=== PATIENT | female | born 1965 | race Caucasian/White ===

== ENCOUNTER 2017-07-24 19:27 | Emergency (ER) | payer OTHER ==
[2017-07-24] MEDS ORDERED: MORPHINE SULFATE 4 MG/ML SYRG IV ONE (20:12)
[2017-07-24] MEDS ORDERED: NORMAL SALINE 1,000 ML IV ONE (20:12)
[2017-07-24 20:25] LABS: Hematocrit 41.7 % (37.0-47.0); Hemoglobin 13.7 gm/dL (12.5-16.0); Mean Cell Volume 88.5 fl (78-100); Mean Corpuscular Hemoglobin 29.1 pg (27-31); Mean Corpuscular Hgb Conc 32.9 g/dl (32-36); Mean Platelet Volume 10.9 fl (6.0-9.5); Neutrophil # 5.3 K/mm3 (1.3-6.0); Neutrophil % 57.1 % (42-75.0); Platelet Count 244 K/mm3 (150-450); Red Blood Count 4.71 M/mm3 (4.2-5.4); Red Cell Distribution Width 13.8 % (11.5-14.0); White Blood Count 9.3 K/mm3 (4.0-10.5)
--- NOTE | 2017-07-24 20:25 | ERNOTE ---
Abdominal HPI - Narrative Date of Service: 07/24/17 - General Chief Complaint: Abdominal Pain Time Seen by Provider: 07/24/17 20:11 Source: patient - Immun/Allergies/Home Medications Immunizatons: IMMUNIZATION HX Immunizations Up to Date No History of Influenza Vaccine No Allergies/Adverse Reactions: Allergies penicillin G Allergy (Intermediate, Verified 07/24/17 19:35) Other ivp Allergy (Intermediate, Uncoded 07/24/17 19:35) Anaphylaxis Home Medications: HOME MEDICATIONS Multivitamin [Multi Vitamin Daily] 1 each PO DAILY 01/18/15 [Last Taken 01/18/15 ] HYDROcodone/ACETAMINOPHEN [[place] 5-325] 1 each PO Q4H PRN #12 tablet 07/24/17 [ Last Taken Unknown] Lamotrigine [Lamictal] 100 mg PO 07/24/17 [Last Taken Unknown] Omeprazole 20 mg PO 07/24/17 [Last Taken Unknown] Venlafaxine HCl 100 mg PO 07/24/17 [Last Taken Unknown] - History of Present Illness Narrative: This is a 52-year-old female who comes to the emergency department complaining of a diffuse abdominal pain which has been going on for 3 weeks. She has seen several doctors for this and has not gotten a diagnosis. It has not really changed today however around 7:00 this evening she started having right-sided chest pain. The patient says that she has no shortness of breath but does have nausea. She relates that she's had nausea with the abdominal pain all along. She denies any vomiting denies any coughing denies any fever she says the pain radiates through to her back does not radiate down her arms. The patient has no shortness of breath or sputum production. Nothing makes the pain better or worse. She is a diabetic. Review of Systems - Review of Systems Constitutional: Present: no symptoms reported EYE: Present: no symptoms reported ENT: Present: no symptoms reported Respiratory: Present: no symptoms reported Cardiology: Present: chest pain Gastrointestinal/Abdominal: Present: nausea, vomiting, abdominal pain Genitourinary: Present: no symptoms reported Musculoskeletal: Present: no symptoms reported Skin: Present: no symptoms reported Neurological: Present: no symptoms reported Endocrine: Present: no symptoms reported - Patient's Past Medical History Patient History - Medical: GERD Patient History - Surgical Procedures: Appendectomy, Cholecystectomy, T & A - Social History Living Situations: home Psych History: Hx of Depression, Hx of Bipolar Disorder Smoking Status: Never smoker - Immunizations Immunizations Up to Date: No History of Influenza Vaccine: No Physical Exam - Physical Exam General Appearance: Present: wd/wn, alert, no apparent distress Head Exam: Present: normal inspection, no evidence of injury Eye Exam: Normal inspection: bilateral, PERRL: right - bilateral pupils are 2 mm and minimally reactive, EOMI: bilateral Ears, Nose, Throat: Present: normal ENT inspection, normal pharynx Neck: Present: normal inspection, nontender Respiratory: Present: no respiratory distress, normal breath sounds, lungs clear Cardiovascular/Chest: Present: regular rate, rhythm, other - patient has a 2/6 systolic murmur best heard over the left lower sternal border Gastrointestinal/Abdominal: Present: normal bowel sounds, other - patient's abdomen is soft, extremely tender to palpation in bilateral upper quadrants. Back Exam: Present: normal inspection, normal range of motion, other - questionable CVA tenderness left greater than right Extremity Exam: Present: normal inspection, normal range of motion, no edema Neurological Exam: Present: alert, oriented, normal mood/affect, no motor/ sensory deficits Skin Exam: Present: normal color, warm/dry Lymphatic Exam: Present: no adenopathy ED Progress - Results and Orders Patient's Lab Results:: I have reviewed the patient's lab results. - Vital Signs Patient's Vital Signs:: I have reviewed the patient's vital signs. Vital Signs: Vital Signs 07/24/17 07/24/17 19:46 20:10 Temperature 37.0 C 37.0 C Pulse Rate 77 77 Respiratory 14 14 Rate Blood Pressure 133/50 133/50 O2 Sat by Pulse 98 98 Oximetry - EKG EKG: NSR EKG read: Interp. by me EKG Comments: Normal sinus rhythm normal axis normal intervals no ST segment changes no signs of acute ischemia - Progress/Reassessment Chief Complaint: Abdominal Pain Progress:: Unchanged Progress Note-Subjective: 07/24/17 22:27 Patient is still having the same pains that she came in with. The chest discomfort is not pleuritic. This has been going on Plan - Plan Plan: The patient has normal laboratories and an unremarkable EKG. Her pain has been for 3 weeks, her nephew was arrested 3 weeks ago, and she got 3 weeks ago. She is complaining primarily of epigastric discomfort as well as nausea when she drinks. She says sometimes food or water feels like it gets caught in the lower part of the chest and won't move. The patient's R he had a CT of the abdomen and pelvis. She has seen a surgeon. He is prescribed medicine for her. She says this isn't helping. She is going to call the surgeon on Wednesday. I discussed with her that without laboratory tests showing possible cause, along with an exam like she has without other specific area of tenderness, that the likelihood of me finding an answer here in the ER is virtually 0. We will control her pain. I will give her some nausea medicine. She'll need to follow-up with her surgeon The patient has an appointment or is supposed to talk with him on Wednesday. I discussed the fact that although we do not see a definite cause for her symptoms here in the ER, this does not mean that there is nothing wrong. She is aware if she develops new concerning symptoms she should return to the ER. Departure Clinical Impression: Abdominal pain, Chest pain - Departure Disposition: Home self-care Condition: Fair Instructions: Abdominal Pain, Adult, [id number], Chest Pain Observation Additional Instructions: As we discussed the tests and studies done here in the ER did not show anything specific wrong. This does not imply that you are not having symptoms, nor doesn 't mean that there is nothing wrong with you. It simply means that the emergency departments testswhich are typically for severe or life-threatening conditions do not show anything abnormal. We have already had a CAT scan with this abdominal pain. Her symptoms have a characteristic which makes me suspect they are coming from her stomach. Certainly acid reflux or irritation of your esophagus could cause some of these symptoms. I see no signs of heart damage on your tests. I want you to call your family doctor, tell them you were seen in the ER with chest pain, and follow up with them as an outpatient. He should return to the ER for new concerning symptoms X He may take the prescribed hydrocodone for severe pain. No driving or operating machinery while taking this Prescriptions: HYDROcodone/ACETAMINOPHEN [[place] 5-325] 1 each PO Q4H PRN #12 tablet PRN Reason: Pain
[2017-07-24 20:43] LABS: ALT 22 U/L (19-67); AST 11 U/L (0-48); Albumin * 3.4 gm/dl (3.4-5.0); Alkaline Phosphatase * 86 U/L (50-170); Anion Gap 13.3 mmol/L (6.8-13.8); BUN/Creatinine Ratio 33.8 (9.0-21.6); Bilirubin, Total 0.2 mg/dL (0.0-1.1); Blood Urea Nitrogen 24 mg/dL (3-23); Ca. Corrected For Albumin 9.4 mg/dL (8.4-10.2); Calcium * 9.2 mg/dL (7.9-10.9); Carbon Dioxide 27.6 mmol/L (24-32.6); Chloride 107 mmol/L (97-106); Glucose * 113 mg/dL (70-110); Lipase 68 U/L (73-393); Potassium 3.9 mmol/L (3.4-4.6); Sodium 144 mmol/L (132-142); Troponin I Less than 0.017 ng/ml (0.00-0.10)
[2017-07-24] MEDS ORDERED: MORPHINE SULFATE 4 MG/ML SYRG ONE ×2 (20:54→22:30)
[2017-07-24 22:00] LABS: Urine Bilirubin Negative (NEGATIVE); Urine Blood Negative /ul (NEGATIVE); Urine Ketone Negative (NEGATIVE); Urine Nitrite Negative (NEGATIVE); Urine Protein Negative (NEGATIVE); Urine Specific Gravity 1.025 SP.GR. (1.005-1.010); Urine Urobilinogen Normal (NORMAL)
[2017-07-24 22:14] LABS: Urine Appearance Clear; Urine Bacteria TRACE; Urine Color Yellow; Urine RBC None Seen /hpf (0-5); Urine WBC None Seen /hpf (0-5)
[2017-07-24] MEDS ORDERED: MORPHINE SULFATE 4 MG/ML SYRG IM ONE (22:27)
[2017-07-24 23:28] VITALS: BP 141/82
== END 2017-07-24 23:37 | disposition home or self-care (01) ==
LOC: ER 19:27
DX: R10.9 Unspecified abdominal pain (principal); R07.9 Chest pain, unspecified

== ENCOUNTER 2017-08-14 18:16 | Emergency (ER) | payer OTHER ==
[2017-08-14] MEDS ORDERED: DIATRIZOATE MEGLUMINE, SODIUM 30 ML BTL PO ONE (19:14)
[2017-08-14] MEDS ORDERED: DIATRIZOATE MEGLUMINE, SODIUM 30 ML BTL ONE (19:23)
[2017-08-14 19:29] LABS: Hematocrit 43.7 % (37.0-47.0); Hemoglobin 14.2 gm/dL (12.5-16.0); Mean Cell Volume 88.6 fl (78-100); Mean Corpuscular Hemoglobin 28.8 pg (27-31); Mean Corpuscular Hgb Conc 32.5 g/dl (32-36); Mean Platelet Volume 10.5 fl (6.0-9.5); Neutrophil # 4.6 K/mm3 (1.3-6.0); Platelet Count 250 K/mm3 (150-450); Red Blood Count 4.93 M/mm3 (4.2-5.4); Red Cell Distribution Width 13.7 % (11.5-14.0)
--- NOTE | 2017-08-14 19:35 | ERNOTE ---
GI Bleeding/Rectal Pain ER Date of Service: 08/14/17 Presenting Symptoms: rectal bleeding Time Seen by Provider: 08/14/17 18:59 Source: patient Exam Limitations: no limitations Immunizations: IMMUNIZATION HX Immunizations Up to Date No History of Influenza Vaccine No Allergies/Adverse Reactions: Allergies penicillin G Allergy (Intermediate, Verified 08/14/17 18:41) Other ivp Allergy (Intermediate, Uncoded 08/14/17 18:41) Anaphylaxis Home Medications: HOME MEDICATIONS Multivitamin [Multi Vitamin Daily] 1 each PO DAILY 01/18/15 [Last Taken 01/18/15 ] Lamotrigine [Lamictal] 100 mg PO 07/24/17 [Last Taken Unknown] Omeprazole 20 mg PO 07/24/17 [Last Taken Unknown] Venlafaxine HCl 100 mg PO 07/24/17 [Last Taken Unknown] Narrative: Patient presents to the ED for blood in stools. She has had two bloody bowel movements today. She states there was blood in the toilet. No vomiting of blood. Had her esophagus "stretches" two weeks ago. Shew also relates intense abdominal pain for approx two weeks. Feels feverish and achy. Loose stool but no clear bloody diarrhea. Not on ABx. No CP or SOB. Nothing really makes this better or worse. Timing: intermittent Quality/Severity: Present: moderate Nausea/Vomiting: Present: blood Abdominal Pain: Present: LUQ, LLQ, epigastric Rectal Bleeding: Present: blood mixed with stool Associated Symptoms: Denies: black stools Prior Treament: Denies: recently hospitalized Review of Systems - Review of Systems Constitutional: Present: chills ENT: Absent: sore throat Respiratory: Absent: shortness of breath Cardiology: Absent: chest pain Gastrointestinal/Abdominal: Present: abdominal pain. Absent: vomiting Genitourinary: Absent: dysuria Neurological: Absent: weakness - Patient's Past Medical History Patient History - Medical: Depression, GERD Patient History - Cardiac/Respiratory: Asthma Patient History - Cancer: No Hx of Cancer Patient History - Surgical Procedures: Appendectomy, Cataracts, Cholecystectomy , Hysterectomy, T & A - Social History Living Situations: home Psych History: Hx of Depression, Hx of Bipolar Disorder Smoking Status: Never smoker Alcohol Use: none Drug Use: none - Immunizations Immunizations Up to Date: No History of Influenza Vaccine: No Physical Exam - Physical Exam General Appearance: Present: alert, no apparent distress Head Exam: Present: normal inspection, no evidence of injury Eye Exam: Normal inspection: bilateral, PERRL: bilateral Ears, Nose, Throat: Present: normal ENT inspection Neck: Present: normal inspection Respiratory: Present: no respiratory distress, normal breath sounds, no accessory muscle use, lungs clear Cardiovascular/Chest: Present: regular rate, rhythm, normal peripheral pulses Gastrointestinal/Abdominal: Present: normal bowel sounds, soft, tenderness, other - Moderate left sided tendenress diffusely. No clear peritoneal signs. No guarding. Rectal Exam: Present: other - with female RN present. No hemorrhoids or fissure seen. No gross blood. No masses noted. Back Exam: Absent: CVA tenderness (R), CVA tenderness (L) Neurological Exam: Present: alert, normal mood/affect, no motor/sensory deficits Skin Exam: Present: normal color, warm/dry ED Progress - Vital Signs Patient's Vital Signs:: I have reviewed the patient's vital signs. Vital Signs: Vital Signs 08/14/17 18:35 Temperature 37 C Pulse Rate 72 Respiratory 20 Rate Blood Pressure 133/99 O2 Sat by Pulse 96 Oximetry - Progress/Reassessment Chief Complaint: GI Bleed - Transfer of Care Physician Sign Out: Juan Pablo Ferguson Receiving Physician: Natasha Jurado Pending Results: CT/MRI results, Labs Departure Clinical Impression: Abdominal pain, Blood in stool - Departure Disposition: Home self-care Condition: Stable Referrals: Kati Gold, DOUG [Primary Care Provider] -
[2017-08-14 19:37] LABS: Urine Appearance Clear; Urine Bilirubin Negative (NEGATIVE); Urine Color Yellow; Urine Ketone Negative (NEGATIVE); Urine Specific Gravity 1.015 SP.GR. (1.005-1.010)
[2017-08-14 19:38] LABS: Urine Nitrite Negative (NEGATIVE); Urine Protein Negative (NEGATIVE); Urine Urobilinogen Normal (NORMAL)
[2017-08-14 19:40] LABS: Prothrombin Time (Patient) 9.9 Seconds (9.0-11.0)
[2017-08-14 19:40] LABS: Urine Bacteria None Seen; Urine Blood 5 /ul (NEGATIVE); Urine RBC None Seen /hpf (0-5); Urine WBC 0-5 /hpf (0-5)
[2017-08-14 19:42] LABS: Albumin * 3.3 gm/dl (3.4-5.0); Anion Gap 10.9 mmol/L (6.8-13.8); BUN/Creatinine Ratio 18.6 (9.0-21.6); Bilirubin, Total 0.2 mg/dL (0.0-1.1); Calcium * 8.8 mg/dL (7.9-10.9); Carbon Dioxide 29.7 mmol/L (24-32.6); Potassium 3.6 mmol/L (3.4-4.6); Total Protein 6.9 gm/dL (6.2-8.2)
[2017-08-14 19:46] LABS: INR 0.99 INR (0.90-1.10)
--- NOTE | 2017-08-14 20:35 | ERNOTE ---
GI Bleeding/Rectal Pain ER Presenting Symptoms: rectal bleeding Time Seen by Provider: 08/14/17 18:59 Source: patient Immunizations: IMMUNIZATION HX Immunizations Up to Date No History of Influenza Vaccine No Allergies/Adverse Reactions: Allergies penicillin G Allergy (Intermediate, Verified 08/14/17 18:41) Other ivp Allergy (Intermediate, Uncoded 08/14/17 18:41) Anaphylaxis Home Medications: HOME MEDICATIONS Multivitamin [Multi Vitamin Daily] 1 each PO DAILY 01/18/15 [Last Taken 01/18/15 ] Lamotrigine [Lamictal] 100 mg PO 07/24/17 [Last Taken Unknown] Omeprazole 20 mg PO 07/24/17 [Last Taken Unknown] Venlafaxine HCl 100 mg PO 07/24/17 [Last Taken Unknown] Narrative: Patient has been up and down to the bathroom, walking without difficulty. She walked to her CT scan without any difficulties. I explained that the CT, while it had a few abnormalities, did not show diverticulitis, which was what we were trying to rule out. She does have questionable stranding around the pancreatic head, her Lipase is low at 72. She has multiple kidney cysts and some areas that are incompletely characterized low-density lesions. I have counseled the patient on these findings, and instructed her to follow up with her primary care provider on Wednesday. - Patient's Past Medical History Patient History - Medical: Depression, GERD Patient History - Cardiac/Respiratory: Asthma Patient History - Cancer: No Hx of Cancer Patient History - Surgical Procedures: Appendectomy, Cataracts, Cholecystectomy , Hysterectomy, T & A - Social History Living Situations: home Psych History: Hx of Depression, Hx of Bipolar Disorder Smoking Status: Never smoker Alcohol Use: none Drug Use: none - Immunizations Immunizations Up to Date: No History of Influenza Vaccine: No Physical Exam - Physical Exam General Appearance: Present: wd/wn, alert, no apparent distress Head Exam: Present: normal inspection, no evidence of injury Ears, Nose, Throat: Present: normal ENT inspection Neck: Present: normal inspection, nontender Respiratory: Present: no respiratory distress Gastrointestinal/Abdominal: Present: soft Back Exam: Present: normal inspection, normal range of motion Extremity Exam: Present: normal inspection, normal range of motion Neurological Exam: Present: alert, oriented, normal mood/affect Skin Exam: Present: normal color, warm/dry ED Progress - Date and Time Seen: Date and Time: 08/14/17 20:34 Laboratory Results - last 24 hr 08/14/17 08/14/17 08/14/17 19:10 19:14 19:20 WBC 8.0 RBC 4.93 Hgb 14.2 Hct 43.7 MCV 88.6 MCH 28.8 MCHC 32.5 RDW 13.7 Plt Count 250 MPV 10.5 H Immature Gran % (Auto) 0.40 Immature Gran # (Auto) 0.03 Neutrophils % 57.0 Lymphocytes % 32.5 Monocytes % 6.8 Eosinophils % 2.6 Basophils % 0.7 Nucleated RBC % 0.0 Neutrophils # 4.6 Lymphocytes # 2.6 Monocytes # 0.6 Eosinophils # 0.2 Absolute Basophils 0.1 PT INR (Anticoag Therapy) Sodium 143 H Plasma Sodium 143 H Potassium 3.6 Chloride 106 Carbon Dioxide 29.7 Anion Gap 10.9 BUN 13 Creatinine 0.70 Est GFR (Non-Af Amer) 93 BUN/Creatinine Ratio 18.6 Random Glucose 100 Calcium 8.8 Calcium Adj for Albumin 9.0 Total Bilirubin 0.2 AST 15 ALT 24 Alkaline Phosphatase 80 Total Protein 6.9 Albumin 3.3 L Lipase 72 L Urine Color Urine Appearance Urine pH Ur Specific [place] Urine Protein Urine Glucose (UA) Urine Ketones Urine Blood Urine Nitrate Urine Bilirubin Urine Urobilinogen Ur Leukocyte Esterase Urine RBC Urine WBC Ur Epithelial Cells Urine Bacteria Urine Culture Comments Stool Occult Blood Negative 08/14/17 08/14/17 19:20 19:21 WBC RBC Hgb Hct MCV MCH MCHC RDW Plt Count MPV Immature Gran % (Auto) Immature Gran # (Auto) Neutrophils % Lymphocytes % Monocytes % Eosinophils % Basophils % Nucleated RBC % Neutrophils # Lymphocytes # Monocytes # Eosinophils # Absolute Basophils PT 9.9 INR (Anticoag Therapy) 0.99 Sodium Plasma Sodium Potassium Chloride Carbon Dioxide Anion Gap BUN Creatinine Est GFR (Non-Af Amer) BUN/Creatinine Ratio Random Glucose Calcium Calcium Adj for Albumin Total Bilirubin AST ALT Alkaline Phosphatase Total Protein Albumin Lipase Urine Color Yellow Urine Appearance Clear Urine pH 6.0 Ur Specific [place] 1.015 Urine Protein Negative Urine Glucose (UA) Negative Urine Ketones Negative Urine Blood 5 H Urine Nitrate Negative Urine Bilirubin Negative Urine Urobilinogen Normal Ur Leukocyte Esterase Negative Urine RBC None seen Urine WBC 0-5 Ur Epithelial Cells 0-5 Urine Bacteria None seen Urine Culture Comments No culture indicated Stool Occult Blood - Results and Orders Patient's Lab Results:: I have reviewed the patient's lab results. Results and Orders: Laboratory Results - last 24 hr 08/14/17 08/14/17 08/14/17 19:10 19:14 19:20 WBC 8.0 RBC 4.93 Hgb 14.2 Hct 43.7 MCV 88.6 MCH 28.8 MCHC 32.5 RDW 13.7 Plt Count 250 MPV 10.5 H Immature Gran % (Auto) 0.40 Immature Gran # (Auto) 0.03 Neutrophils % 57.0 Lymphocytes % 32.5 Monocytes % 6.8 Eosinophils % 2.6 Basophils % 0.7 Nucleated RBC % 0.0 Neutrophils # 4.6 Lymphocytes # 2.6 Monocytes # 0.6 Eosinophils # 0.2 Absolute Basophils 0.1 PT INR (Anticoag Therapy) Sodium 143 H Plasma Sodium 143 H Potassium 3.6 Chloride 106 Carbon Dioxide 29.7 Anion Gap 10.9 BUN 13 Creatinine 0.70 Est GFR (Non-Af Amer) 93 BUN/Creatinine Ratio 18.6 Random Glucose 100 Calcium 8.8 Calcium Adj for Albumin 9.0 Total Bilirubin 0.2 AST 15 ALT 24 Alkaline Phosphatase 80 Total Protein 6.9 Albumin 3.3 L Lipase 72 L Urine Color Urine Appearance Urine pH Ur Specific [place] Urine Protein Urine Glucose (UA) Urine Ketones Urine Blood Urine Nitrate Urine Bilirubin Urine Urobilinogen Ur Leukocyte Esterase Urine RBC Urine WBC Ur Epithelial Cells Urine Bacteria Urine Culture Comments Stool Occult Blood Negative 08/14/17 08/14/17 19:20 19:21 WBC RBC Hgb Hct MCV MCH MCHC RDW Plt Count MPV Immature Gran % (Auto) Immature Gran # (Auto) Neutrophils % Lymphocytes % Monocytes % Eosinophils % Basophils % Nucleated RBC % Neutrophils # Lymphocytes # Monocytes # Eosinophils # Absolute Basophils PT 9.9 INR (Anticoag Therapy) 0.99 Sodium Plasma Sodium Potassium Chloride Carbon Dioxide Anion Gap BUN Creatinine Est GFR (Non-Af Amer) BUN/Creatinine Ratio Random Glucose Calcium Calcium Adj for Albumin Total Bilirubin AST ALT Alkaline Phosphatase Total Protein Albumin Lipase Urine Color Yellow Urine Appearance Clear Urine pH 6.0 Ur Specific [place] 1.015 Urine Protein Negative Urine Glucose (UA) Negative Urine Ketones Negative Urine Blood 5 H Urine Nitrate Negative Urine Bilirubin Negative Urine Urobilinogen Normal Ur Leukocyte Esterase Negative Urine RBC None seen Urine WBC 0-5 Ur Epithelial Cells 0-5 Urine Bacteria None seen Urine Culture Comments No culture indicated Stool Occult Blood - Vital Signs Patient's Vital Signs:: I have reviewed the patient's vital signs. Vital Signs: Vital Signs 08/14/17 08/14/17 08/14/17 18:35 19:28 19:58 Temperature 37 C 37 C Pulse Rate 72 72 68 Respiratory 20 16 Rate Blood Pressure 133/99 125/65 O2 Sat by Pulse 96 98 Oximetry - CT/Ultrasound CT/Ultrasound Narrative: CT Abdomen/Pelvis 1. Questionable fat stranding near the pancreatic head. 2. No additional acute intra-abdominal findings. 3. Incompletely characterized low-density renal lesions. Follow-up renal sonography (or renal CT versus MRI) can be considered. 4. Hepatic steatosis. - Progress/Reassessment Chief Complaint: GI Bleed Progress:: Unchanged Progress Note-Subjective: 08/14/17 21:44 Patient has been up and down to the bathroom, walked to the CT scan and back. Once in the room, she acted like she was in pain, but appeared to understand that her labs were all mostly normal, that her guiac stool was negative, that if she had red stools, they were most likely from something she ate as opposed to a GI bleed, of which we have found no evidence whatsoever. I instructed the patient to call her primary care provider in [place] Wednesday and get in there for follow up. - Transfer of Care Physician Sign Out: Juan Pablo Ferguson Brief History: Patient states that she has had 2 bloody stools today, so she came in here to be checked out. She was seen initially by Dr. Ferguson. Her labs have come back, they are normal, guiac is negative. Patient is up and walking around. She has drank the oral contrast, is not receiving the IV contrast. She is seen frequently in the ED both here and other hospitals. Receiving Physician: Natasha Jurado Pending Results: CT/MRI results, Labs Departure Clinical Impression: Renal cyst Abdominal pain Qualifiers: Abdominal location: generalized Qualified Code(s): R10.84 - Generalized abdominal pain - Departure Disposition: Home self-care Condition: Stable Instructions: Indigestion, [id number], Food Choices to Help Relieve Diarrhea , Adult Referrals: Kati Gold CNP [Primary Care Provider] - 08/16/17 8:00 am (Call to set up an appointment in the next 3-5 days)
[2017-08-14 21:53] VITALS: BP 120/75
== END 2017-08-14 22:02 | disposition home or self-care (01) ==
LOC: ER 18:16
DX: N28.1 Cyst of kidney, acquired (principal); R10.84 Generalized abdominal pain

== ENCOUNTER 2019-03-12 19:32 | Observation (INO) ==
[2019-03-12] MEDS ORDERED: ASPIRIN 81 MG TAB.CHEW PO ONE (19:49)
--- NOTE | 2019-03-12 19:51 | ERNOTE ---
Chest Pain/Cardiac HPI Date of Service: 03/12/19 Chief Complaint: Chest Pain Time Seen by Provider: 03/12/19 19:46 Source: patient, family Exam Limitations: no limitations Immunizations: IMMUNIZATION HX Immunizations Up to Date Yes History of Influenza Vaccine No Hx Pneumococcal Vaccination No Allergies/Adverse Reactions: Allergies penicillin G Allergy (Intermediate, Verified 03/12/19 19:42) Other iodine iv contrast Allergy (Uncoded 03/12/19 19:42) Anaphylaxis Home Medications: HOME MEDICATIONS Vit D3-Vit K/Berberine/Hops [Ostera Tablet] 1 tab PO DAILY 08/31/18 [Last Taken Unknown] Meclizine HCl [Antivert] 25 mg PO TID #42 tab 11/23/18 [Last Taken Unknown] Omeprazole 20 mg PO DAILY 12/01/18 [Last Taken Unknown] topiramate 25 mg tablet 25 mg PO BID 12/06/18 [Last Taken Unknown] Naproxen [Naprosyn] 375 mg PO BID #30 tab 12/23/18 [Last Taken Unknown] lorazepam 0.5 mg tablet 0.5 mg PO HS #30 tab 12/26/18 [Last Taken Unknown] lamotrigine 200 mg tablet 200 mg PO HS #30 tab 02/06/19 [Last Taken Unknown] vortioxetine 20 mg tablet 20 mg PO DAILY #30 tab 02/21/19 [Last Taken Unknown] Narrative: Patient reports sitting down and starting to eat some fish tonight when she developed chest pain. Describes as acute onset to the left of the sternum worsening with deep breathing. States she can point exactly to the spot where the pain is the worse. Describes as more of a burning pain that does not radiate into any extremities, back, or jaw. Denies any nausea. States she has had chest pain before but never an ND. Has a strong family history of CAD. Date (Duration): 03/12/19 Time (Timing): 18:00 Timing: intermittent Severity/Quality: mild, burning Location: substernal, epigastric Chest Pain Radiation: no radiation Activities at Onset: other - eating Modifying Factors - Improves: Present: nothing Modifying Factors - Worsens: Present: eating Nitro Today/Relief: no nitro taken today Aspirin Treatment Today: 325 mg x 1, provided by ED Associated Symptoms: Present: denies symptoms Prior Chest Pain/Cardiac Workup: Reports: prior chest pain Review of Systems - Review of Systems Constitutional: Present: no symptoms reported EYE: Present: no symptoms reported ENT: Present: no symptoms reported Respiratory: Present: no symptoms reported Cardiology: Present: chest pain, other - burning worse with deep breathing. Able to pinpoint where the pain is. Gastrointestinal/Abdominal: Present: no symptoms reported Genitourinary: Present: no symptoms reported Musculoskeletal: Present: no symptoms reported Skin: Present: no symptoms reported Neurological: Present: no symptoms reported Endocrine: Present: no symptoms reported Hematologic/Lymphatic: Present: no symptoms reported Medical History (Updated 03/12/19 @ 20:47 by FELICIA Razo) Mental retardation (Chronic) Major depression (Chronic) Borderline personality disorder (Chronic) Abdominal pain Anxiety Onset Date: Unknown Apnea Onset Date: Unknown Asthma Onset Date: Unknown Attempted suicide Bipolar 1 disorder, depressed Bronchitis Onset Date: Unknown Cataract Cough Onset Date: ~02/2013 Depression Onset Date: Unknown Dizziness Onset Date: Unknown Dyspareunia Onset Date: ~03/2014 Epilepsy Onset Date: Unknown Frequent infections Onset Date: Unknown Gout Onset Date: Unknown IBS (irritable bowel syndrome) Measles Onset Date: Unknown Multiple allergies Onset Date: Unknown Nervousness Onset Date: Unknown Pneumonia Onset Date: Unknown Rheumatoid arthritis Onset Date: Unknown Schizophrenia Onset Date: Unknown Seizures Onset Date: Unknown Surgical History: Surgical History (Updated 02/17/19 @ 15:18 by Otto Garcia LPN) Esophageal dilatation H/O dilation and curettage Onset Date: ~1991 H/O: hysterectomy History of appendectomy History of cataract surgery Onset Date: ~2011 History of cholecystectomy Hx of tonsillectomy [place] teeth extracted Onset Date: Unknown tumor removed left ovary Family History: Family History (Updated 02/17/19 @ 15:23 by Otto Garcia LPN) Other Anemia Arthritis Asthma CVA (cerebral vascular accident) Cancer Diabetes Glaucoma Heart disease Hypertension Kidney disease Mental illness in member of household Myocardial infarction Osteoporosis Seizures Ulcer Social History: Preferred Language Lithuanian Do you have any anabaptism or No cultural preference? Smoking Status Never smoker Psych History Hx of Depression,Hx of Bipolar Disorder Alcohol Use none Drug Use none (Last Updated 02/17/19 @ 15:29 by Otto Garcia LPN) No Social History Section defined Physical Exam - Physical Exam General Appearance: Present: wd/wn, alert, no apparent distress Eye Exam: Normal inspection: bilateral, PERRL: bilateral, EOMI: bilateral Ears, Nose, Throat: Present: normal pharynx Neck: Present: normal inspection, nontender Respiratory: Present: no respiratory distress, normal breath sounds, no accessory muscle use, chest nontender, lungs clear Cardiovascular/Chest: Present: regular rate, rhythm, normal peripheral pulses, systolic murmur Peripheral Pulses: N=norm/S=strong/W=weak/B=bound/A=absent: Radial (R): Normal, Radial (L): Normal, Dorsalis-pedis (R): Normal, Dorsalis-pedis (L): Normal Gastrointestinal/Abdominal: Present: normal bowel sounds, nontender, nondistended, soft, no organomegaly Back Exam: Present: normal range of motion, no CVA tenderness, no vertebral tenderness Extremity Exam: Present: normal inspection, normal range of motion, no edema Neurological Exam: Present: alert, oriented, normal mood/affect, no motor/sensory deficits Skin Exam: Present: normal color, warm/dry Progress - Results and Orders Patient's Lab Results:: I have reviewed the patient's lab results. - Vital Signs Patient's Vital Signs:: I have reviewed the patient's vital signs. Vital Signs: Vital Signs 03/12/19 19:36 Temperature 37.2 C Pulse Rate 82 Respiratory Rate 19 Blood Pressure 118/40 O2 Sat by Pulse Oximetry 95 - EKG EKG #1 EKG: NSR - No ST elevation/depression EKG read: Interp. by me - X-Ray X-Ray #1 X-Ray: chest - No acute findings - Progress/Reassessment Chief Complaint: Chest Pain Progress:: Re-examined - Still has some chest pain. - Transfer of Care Additional Notes: Discussed with Dr. Ennis. With family history of coronary disease patient needs to be monitored with serial troponins. Will give some IV fluids as well. Patient has positive leukocyte esterase in urine but is without WBCs. No urinary symptoms including fever, dysuria. No culture is indicated. Likely this is contamination instead of true UTI. Will withhold antibiotics at this time. Departure Clinical Impression: Chest pain Qualifiers: Chest pain type: unspecified Qualified Code(s): R07.9 - Chest pain, unspecified - Departure Disposition: Still a patient Condition: Stable
[2019-03-12 20:01] LABS: Hematocrit 41.4 % (37.0-47.0); Mean Cell Volume 90.4 fl (78-100); Mean Corpuscular Hemoglobin 28.4 pg (27-31); Mean Corpuscular Hgb Conc 31.4 g/dl (32-36); Mean Platelet Volume 10.6 fl (8-12.5); Neutrophil # 5.5 K/mm3 (1.3-6.0); Neutrophil % 58.5 % (42-75.0); Platelet Count 258 K/mm3 (150-450); Red Blood Count 4.58 M/mm3 (4.2-5.4); Red Cell Distribution Width 14.5 % (11.5-14.0); White Blood Count 9.4 K/mm3 (4.0-10.5)
[2019-03-12 20:20] LABS: Anion Gap 14.4 mmol/L (6.8-13.8); Blood Urea Nitrogen 22 mg/dL (3-23); CK Total * 41 U/L (0-259); Calcium * 9.6 mg/dL (7.9-10.9); Carbon Dioxide 27.8 mmol/L (24-32.6); Chloride 106 mmol/L (97-106); Estimated Creat Clear 69.4; Glucose * 120 mg/dL (70-110); Potassium 4.2 mmol/L (3.4-4.6); Sodium 144 mmol/L (132-142); Troponin I Less than 0.017 ng/mL (0.00-0.10)
[2019-03-12 20:30] LABS: Urine Bilirubin Negative (NEGATIVE); Urine Blood Negative /ul (NEGATIVE); Urine Ketone Negative (NEGATIVE); Urine Nitrite Negative (NEGATIVE); Urine Protein Negative (NEGATIVE); Urine Urobilinogen Normal (NORMAL); Urine pH 6.5 pH (5.0-7.0)
[2019-03-12] MEDS ORDERED: LIDOCAINE HCL 20 ML UDC PO ONE (20:35)
[2019-03-12] MEDS ORDERED: SUCRALFATE 1 G/10 ML UDC PO ONE (20:35)
[2019-03-12] MEDS ORDERED: MAG HYDROX/ALUMINUM HYD/SIMETH 30 ML UDC PO ONE (20:35)
[2019-03-12 20:40] LABS: Urine Appearance Clear (CLEAR); Urine Bacteria TRACE; Urine Color Yellow; Urine RBC None Seen /hpf (0-5); Urine WBC 0-5 /hpf (0-5)
[2019-03-12] MEDS: NORMAL SALINE 1,000 ML IV PRN (23:44)
[2019-03-13] MEDS: NORMAL SALINE 1,000 ML IV PRN (06:48)
--- NOTE | 2019-03-13 08:46 | HPDIS ---
Chief Complaint - Chief Complaint Date of Service: 03/13/19 Time of Service: 07:45 Chief Complaint: Chest Pain History of Present Illness: Renita is a 54 yo female that reports chest pain that began yesterday prior to coming to the ER. Pain was located in left anterior chest. She reports pain is worse with movement. She was concerned due to strong family history of sudden from heart attacks. She denies change in activity, medications, or diet. She reports she has gained 80lbs over the last several months for no reason. She has a new patient appointment with a at [facility] in [place]. She has seen Dr. Chapman in [place] in the past. She reports history of asthma but feels this has not been as well controlled over the last few months. She coughs all the time for the past 6 months. Reviewed diagnostics from the ER which showed a normal chest xray, ECG without acute concerns, and normal troponin. She reports no chest pain if she stays still, but once she moves her chest hurts. Medical History (Updated 03/12/19 @ 20:47 by FELICIA Razo) Mental retardation (Chronic) Major depression (Chronic) Borderline personality disorder (Chronic) Abdominal pain Anxiety Onset Date: Unknown Apnea Onset Date: Unknown Asthma Onset Date: Unknown Attempted suicide Bipolar 1 disorder, depressed Bronchitis Onset Date: Unknown Cataract Cough Onset Date: ~02/2013 Depression Onset Date: Unknown Dizziness Onset Date: Unknown Dyspareunia Onset Date: ~03/2014 Epilepsy Onset Date: Unknown Frequent infections Onset Date: Unknown Gout Onset Date: Unknown IBS (irritable bowel syndrome) Measles Onset Date: Unknown Multiple allergies Onset Date: Unknown Nervousness Onset Date: Unknown Pneumonia Onset Date: Unknown Rheumatoid arthritis Onset Date: Unknown Schizophrenia Onset Date: Unknown Seizures Onset Date: Unknown Surgical History: Surgical History (Updated 02/17/19 @ 15:18 by Otto Garcia LPN) Esophageal dilatation H/O dilation and curettage Onset Date: ~1991 H/O: hysterectomy History of appendectomy History of cataract surgery Onset Date: ~2011 History of cholecystectomy Hx of tonsillectomy [place] teeth extracted Onset Date: Unknown tumor removed left ovary Family History: Family History (Updated 02/17/19 @ 15:23 by Otto Garcia LPN) Other Anemia Arthritis Asthma CVA (cerebral vascular accident) Cancer Diabetes Glaucoma Heart disease Hypertension Kidney disease Mental illness in member of household Myocardial infarction Osteoporosis Seizures Ulcer Social History: Patient Lives/Resources w/ sister Utilized Occupation unemployed Preferred Language Spanish Do you have any yarsani or Yes: Faith cultural preference? Smoking Status Never smoker Have you smoked in the past 12 No months Psych History Hx of Depression,Hx of Bipolar Disorder Alcohol Use none Drug Use none (Last Updated 02/17/19 @ 15:29 by Otto Garcia LPN) No Social History Section defined Review Of Systems (GEN) - Review of Systems Generalized/Overall Review: Absent: Weakness, Chills, Fever EENTM: Present: No Symptoms Reported Respiratory: Present: Cough, Shortness of Breath Cardiac: Present: Chest Pain. Absent: Edema, Palpitations, Syncope Abdominal: Absent: Nausea, Vomiting Genitourinary: Present: No Symptoms Reported Musculoskeletal: Present: Muscle Pain Neurological: Present: No Symptoms Reported Skin: Present: No Symptoms Reported Endocrine: Present: No Symptoms Reported Immunizations: IMMUNIZATION HX Immunizations Up to Date Yes History of Influenza Vaccine No Hx Pneumococcal Vaccination No Allergies/Adverse Reactions: Allergies Allergy/AdvReac Type Severity Reaction Status Date / Time penicillin G Allergy Intermediate Other Verified 03/12/19 19:42 iodine iv contrast Allergy Anaphylaxis Uncoded 03/12/19 19:42 Home Medications: HOME MEDICATIONS Vit D3-Vit K/Berberine/Hops [Ostera Tablet] 1 tab PO DAILY 08/31/18 [Last Taken Unknown] Omeprazole 20 mg PO DAILY 12/01/18 [Last Taken Unknown] topiramate 25 mg tablet 25 mg PO BID 12/06/18 [Last Taken Unknown] lorazepam 0.5 mg tablet 0.5 mg PO HS #30 tab 12/26/18 [Last Taken Unknown] lamotrigine 200 mg tablet 200 mg PO HS #30 tab 02/06/19 [Last Taken Unknown] vortioxetine 20 mg tablet 20 mg PO DAILY #30 tab 02/21/19 [Last Taken Unknown] Exam - Exam Vital Signs: Vital Signs - Last Taken Temp 36.4 C 03/13/19 06:44 Pulse 65 03/13/19 07:07 Resp 20 03/13/19 06:44 BP 108/36 03/13/19 06:44 Pulse Ox 96 03/13/19 06:44 Constitutional: Present: Alert, Oriented x3, Cooperative ENT Exam: Present: hearing grossly normal Eye Exam: bilateral eye: normal inspection Respiratory: Present: lungs clear, normal breath sounds Cardiovascular/Chest: Present: regular rate, rhythm, systolic murmur - 2+ Peripheral Pulses: radial (R): 2+, radial (L): 2+ Abdomen: Present: Normal bowel sounds, soft, nontender, nondistended Extremity: Present: normal inspection. Absent: lower extremity edema Skin Exam: Present: normal color, warm/dry, no cyanosis Neurologic: Present: no motor/sensory deficits, alert, normal mood/affect, oriented x 3 Appearance: Present: appropriate appearance, appropriate insight Eye contact: Present: cooperative, good eye contact, normal speech Thoughts: Present: normal thought pattern, no apparent hallucination Diagnostic Studies: Abnormal Lab Results 03/12/19 03/12/19 03/12/19 Range/Units 20: 20:02 20:21 MCHC 31.4 L (32-36) g/dl RDW 14.5 H (11.5-14.0) % Immature Gran # (Auto) 0.04 H (0.000-0.0310) K/mm3 Sodium 144 H (132-142) mmol/L Plasma Sodium 144 H (130-142) mmol/L Anion Gap 14.4 H (6.8-13.8) mmol/L BUN/Creatinine Ratio 25.0 H (9.0-21.6) Random Glucose 120 H (70-110) mg/dL Ur Leukocyte Esterase 75 H (NEGATIVE) /ul Microbiology 03/12/19 20:43 Urine Culture - Preliminary Urine,Voided No Growth Laboratory Results WBC 9.4 K/mm3 (4.0-10.5) 03/12/19 20: RBC 4.58 M/mm3 (4.2-5.4) 03/12/19 20:02 Hgb 13.0 gm/dL (12.5-16.0) 03/12/19 20: Hct 41.4 % (37.0-47.0) 03/12/19 20: MCV 90.4 fl (78-100) 03/12/19 20:02 MCH 28.4 pg (27-31) 03/12/19 20: MCHC 31.4 g/dl (32-36) L 03/12/19 20: RDW 14.5 % (11.5-14.0) H 03/12/19 20:02 Plt Count 258 K/mm3 (150-450) 03/12/19 20:02 MPV 10.6 fl (8-12.5) 03/12/19 20:02 Immature Gran % (Auto) 0.40 % (0.001-0.429) 03/12/19 20:02 Immature Gran # (Auto) 0.04 K/mm3 (0.000-0.0310) H 03/12/19 20:02 58.5 % (42-75.0) 03/12/19 20:02 31.8 % (20-51) 03/12/19 20:02 6.9 % (0.0-9) 03/12/19 20:02 1.9 % (0.0-3.0) 03/12/19 20:02 0.5 % (0.0-1.0) 03/12/19 20:02 Nucleated RBC % 0.0 k/mm3 (0-1) 03/12/19 20:02 5.5 K/mm3 (1.3-6.0) 03/12/19 20:02 2.99 k/mm3 (1.5-3.5) 03/12/19 20:02 0.7 k/mm3 (0.0-1.0) 03/12/19 20:02 0.2 k/mm3 (0.0-0.7) 03/12/19 20:02 Absolute Basophils 0.1 k/mm3 (0.0-0.1) 03/12/19 20:02 Sodium 144 mmol/L (132-142) H 03/12/19 20:02 144 mmol/L (130-142) H 03/12/19 20:02 Potassium 4.2 mmol/L (3.4-4.6) 03/12/19 20:02 Chloride 106 mmol/L (97-106) 03/12/19 20:02 Carbon Dioxide 27.8 mmol/L (24-32.6) 03/12/19 20:02 14.4 mmol/L (6.8-13.8) H 03/12/19 20:02 BUN 22 mg/dL (3-23) D 03/12/19 20:02 0.88 mg/dL (0.4-1.4) 03/12/19 20:02 Est GFR (Non-Af Amer) 71 mL/min (60-130) 03/12/19 20:02 25.0 (9.0-21.6) H 03/12/19 20:02 120 mg/dL (70-110) H 03/12/19 20:02 Calcium 9.6 mg/dL (7.9-10.9) 03/12/19 20:02 41 U/L (0-259) 03/12/19 20:02 Less than 0.017 ng/mL (0.00-0.10) 03/13/19 02:04 Yellow 03/12/19 20:21 Clear (CLEAR) 03/12/19 20:21 6.5 pH (5.0-7.0) 03/12/19 20:21 Ur Specific [place] 1.010 SP.GR. (1.005-1.010) 03/12/19 20:21 Negative mg/dL (NEGATIVE) 03/12/19 20:21 Negative mg/dL (NEGATIVE) 03/12/19 20:21 Negative mg/dL (NEGATIVE) 03/12/19 20:21 Negative /ul (NEGATIVE) 03/12/19 20:21 Negative (NEGATIVE) 03/12/19 20:21 Negative mg/dl (NEGATIVE) 03/12/19 20:21 Normal EU/dl (NORMAL) 03/12/19 20:21 Ur Leukocyte Esterase 75 /ul (NEGATIVE) H 03/12/19 20:21 None seen /hpf (0-5) 03/12/19 20:21 0-5 /hpf (0-5) 03/12/19 20:21 Ur Epithelial Cells 0-5 /hpf (0-5) 03/12/19 20:21 Trace (NONE) 03/12/19 20:21 Culture to follow 03/12/19 20:21 Assessment/Plan - Assessment/Plan (1) Chest pain Assessment: Renita is a 54 yo female with asthma who presented to the ER for chest pain. Initial work up was negative for acute AR with no acute change on ECG, normal chest xray, and normal troponin. Due to symptoms and family history ER requested admit to monitor for acute AR. She will be admitted to observation on telemetry and have repeat troponin. I suspect that her symptoms of chest pain are musculoskeletal and may be related to chest wall inflammation, but she warrants being ruled out. Problem: Acute Qualifiers: Chest pain type: unspecified Qualified Code(s): R07.9 - Chest pain, unspecified (1) Chest pain Problem: Acute Qualifiers: Chest pain type: unspecified Qualified Code(s): R07.9 - Chest pain, unspecified Description of Stay: Renita was admitted for chest pain with a strong history of AR causing in multiple family members. Initial work up in the ER was negative for AR. She was admitted on observation with telemetry which showed no acute changes. All troponins were normal. Chest pain is only present with movement and appears to have a musculoskeletal source. Chest pain does not appear to be cardiac related and she will be discharged to home. I have not made any changes in medication. She will follow up with her new provider on March 29 to further work up her weight gain and shortness of breath. Procedures Performed: none Results and Findings: Pending Mircobiology Results 03/12/19 20:43 Urine,Voided Urine Culture - Preliminary No Growth Lab Pending Results 03/12/19 20:02: WBC 9.4, RBC 4.58, Hgb 13.0, Hct 41.4, MCV 90.4, MCH 28.4, MCHC 31.4 L, RDW 14.5 H, Plt Count 258, MPV 10.6, Immature Gran % (Auto) 0.40, Immature Gran # (Auto) 0.04 H, Neutrophils % 58.5, Lymphocytes % 31.8, Monocytes % 6.9, Eosinophils % 1.9, Basophils % 0.5, Nucleated RBC % 0.0, Neutrophils # 5.5, Lymphocytes # 2.99, Monocytes # 0.7, Eosinophils # 0.2, Absolute Basophils 0.1 03/12/19 20:02: Sodium 144 H, Plasma Sodium 144 H, Potassium 4.2, Chloride 106, Carbon Dioxide 27.8, Anion Gap 14.4 H, BUN 22 D, Creatinine 0.88, Est GFR (Non- Af Amer) 71, BUN/Creatinine Ratio 25.0 H, Random Glucose 120 H, Calcium 9.6, Creatine Kinase 41, Troponin I Less than 0.017 03/12/19 20:21: Urine Color Yellow, Urine Appearance Clear, Urine pH 6.5, Ur Specific [place] 1.010, Urine Protein Negative, Urine Glucose (UA) Negative, Urine Ketones Negative, Urine Blood Negative, Urine Nitrate Negative, Urine Bilirubin Negative, Urine Urobilinogen Normal, Ur Leukocyte Esterase 75 H, Urine RBC None seen, Urine WBC 0-5, Ur Epithelial Cells 0-5, Urine Bacteria Trace, Urine Culture Comments Culture to follow 03/13/19 02:04: Troponin I Less than 0.017 Discharge Location: Home Disposition: Home self-care Condition: Good Discharge Activity: Activity as tolerated Discharge Diet: Low fat/chol Referrals: [facility]IDE [Non Staff Physicians] - (Keep new patient appointment at [facility] Problem Oriented Discharge Instructions to Patient/Family: Chest Pain Observation Complete Home Medications List: Complete Home Medication List: Vit D3-Vit K/Berberine/Hops [Ostera Tablet] 1 tab PO DAILY 08/31/18 Omeprazole 20 mg PO DAILY 12/01/18 topiramate 25 mg tablet 25 mg PO BID 12/06/18 lorazepam 0.5 mg tablet 0.5 mg PO HS #30 tab 12/26/18 lamotrigine 200 mg tablet 200 mg PO HS #30 tab 02/06/19 vortioxetine 20 mg tablet 20 mg PO DAILY #30 tab 02/21/19
[2019-03-13 10:55] VITALS: BP 129/59
== END 2019-03-13 09:25 | disposition home or self-care (01) ==
LOC: MS 19:32 → ER 19:32 → MS 21:47
PROVIDERS: ADMIT Family Medicine; ATTEND Family Medicine
DX: R07.9 Chest pain, unspecified
CPT/HCPCS: 36415; 71020; 71046; 80048; 81001; 82550; 84484; 85025; 87086; 93005; 96360; 96361; 99285; G0378